=== PATIENT | female | born 1990 | race Caucasian/White ===

== ENCOUNTER 2021-10-10 02:05 | Emergency (ER) | payer BC ==
[2021-10-10 02:46] LABS: HEMOGLOBIN 14.4 gm/dl (12.3-15.3); RED BLOOD COUNT 4.9 M/UL (4.00-5.10); WHITE BLOOD COUNT 7.9 K/UL (4.5-11.0)
[2021-10-10 03:12] LABS: BUN/CREATININE RATIO 18 (0-10)
== END 2021-10-10 05:13 | disposition home or self-care (01) ==
LOC: ER1 02:05
DX: R07.89 Other chest pain (principal); Z90.89 Acquired absence of other organs
CPT/HCPCS: 71045; 80053; 82550; 82553; 84484; 85025; 85379; 93005; 99285